=== PATIENT | female | born 1955 | race Caucasian/White ===

== ENCOUNTER → 2017-08-31 | Outpatient (CLI) | payer BC ==
[~2017-08-31] MED LIST: ANALGESIC BALM28 GM TP; ASCORBIC ACID500 M3 PO; BENTYL20 MG PO; CALCIUM 500 MG1 EACH PO; CLARITIN,ALAVAR10 MG PO; CLOTRIMAZOLE10 MG PO; ESTRACE1 MG PO; ESTROGEN-METHY1 EAC3 PO; FLAXSEED OIL1000 M4 PO; LEVAQUIN500 MG PO; LIDEX 0.05% OIN15 GM TP; MACROBID100 MG PO; MELOXICAM15 MG PO; OMEGA-31000 M1 PO; PREDNISONE20 MG PO; VENTOLIN HFA18 GM IH; VITAMIN D1000 INTUN PO; Vicodin,Lortab 5/500 PO
== END | disposition home or self-care (01) ==
LOC: CDC 13:59
DX: Z01.810 Encounter for preprocedural cardiovascular examination (principal); I45.10 Unspecified right bundle-branch block; K64.9 Unspecified hemorrhoids
CPT/HCPCS: 93000

== ENCOUNTER 2017-09-12 05:33 | Day surgery (SDC) | payer BC ==
[~2017-09-12] VITALS: Ht 170.2 cm; Wt 77.0 kg
[~2017-09-12 05:33] MED LIST changes: +PROBIOTIC1 EAC3 PO; +ZESTRIL10 MG PO
[2017-09-12 06:40] VITALS: BP 120/64
[2017-09-12] MEDS ORDERED: COLACE100 MG PO (08:19)
[2017-09-12] MEDS ORDERED: NORCO 5/3251 TABLET PO (08:19)
[2017-09-12 09:25] VITALS: BP 105/55
[2017-09-12 10:25] VITALS: BP 105/53
== END 2017-09-12 10:30 | disposition home or self-care (01) ==
LOC: SDC 05:33
PROC: 06BY0ZC Excision of Hemorrhoidal Plexus, Open Approach (ICD-10-PCS; principal; 2017-09-12)
DX: K64.9 Unspecified hemorrhoids (principal); K64.4 Residual hemorrhoidal skin tags; I10 Essential (primary) hypertension; I45.10 Unspecified right bundle-branch block; Z88.0 Allergy status to penicillin
CPT/HCPCS: 88304; J0131; J1100; J1580; J1885; J2250; J2405; J3010; J7050; Q0175; S0030

== ENCOUNTER 2018-03-20 08:18 | Emergency (ER) | payer OTHER, BC ==
[~2018-03-20] VITALS: Ht 170.2 cm; Wt 71.8 kg
[~2018-03-20 08:18] MED LIST changes: +COLACE100 MG PO; +NORCO 5/3251 TABLET PO
[2018-03-20] MEDS ORDERED: FLEXERIL10 MG PO (09:10)
[2018-03-20 09:23] VITALS: BP 132/69
== END 2018-03-20 09:24 | disposition home or self-care (01) ==
LOC: EME 08:18
DX: S13.9XXA Sprain of joints and ligaments of unspecified parts of neck, initial encounter (principal); V49.40XA Driver injured in collision with unspecified motor vehicles in traffic accident, initial encounter; Y92.410 Unspecified street and highway as the place of occurrence of the external cause; Z87.442 Personal history of urinary calculi; Z90.49 Acquired absence of other specified parts of digestive tract; Z90.710 Acquired absence of both cervix and uterus; Z88.0 Allergy status to penicillin; Z88.1 Allergy status to other antibiotic agents; Z88.4 Allergy status to anesthetic agent
CPT/HCPCS: 72040; 99281; 99284